=== PATIENT | male | born 1935 | race African-American/Black ===

== ENCOUNTER 2016-06-23 15:26 | Emergency (ER) | payer MEDICARE, MEDICAID ==
[2016-06-23] MEDS ORDERED: TETRACAINE HCL 0.5% OPH SOLN 2 ML OS ONE ×2 (15:31→16:16)
--- NOTE | 2016-06-23 15:33 | ER Document Report ---
ED Medical Screen (RME) - General Stated Complaint: EYE IRRITATION Time seen by provider: 15:32 Mode of Arrival: Ambulatory Information source: Patient Notes: 80-year-old noncontact lens wear male trimming grapevines down and a piece of it flew into his left eye. feels like it is in the upper left corner under the eyelid.
--- NOTE | 2016-06-23 16:18 | ER Document Report ---
HPI - HPI Patient complains to provider of: left eye irritation Onset: Just prior to arrival Onset/Duration: Sudden Quality of pain: Achy Severity: Severe Pain Level: 5 Context: Patient presents to the emergency department with complaints of left eye irritation. He reports he was trimming a grapevine when something hit him in the eye. Reports cataract surgery 6 months ago. Does not wear contacts. Patient reports he doesn't with glasses but he should. He reports he doesn't have very good vision. Associated Symptoms: None Exacerbated by: Denies Relieved by: Denies Similar symptoms previously: No Recently seen / treated by doctor: No - DERM Skin Color: Normal Past Medical History - General Information source: Patient - Social History Smoking Status: Never Smoker Cigarette use (# per day): No Frequency of alcohol use: None Drug Abuse: None Family History: None Patient has suicidal ideation: No Patient has homicidal ideation: No - Medical History Medical History: Negative Renal/ Medical History: Denies: Hx Peritoneal Dialysis Past Surgical History: Reports: Other - CATARACT SURGER Vertical Provider Document - CONSTITUTIONAL Agree With Documented VS: Yes Exam Limitations: No Limitations General Appearance: WD/WN, No Apparent Distress - INFECTION CONTROL TRAVEL OUTSIDE OF THE [place] IN LAST 30 DAYS: No - HEENT HEENT: Atraumatic, Normocephalic, PERRLA. negative: Conjuctival Injection - NECK Neck: Normal Inspection, Supple. negative: Lymphadenopathy-Left, Lymphadenopathy-Right - RESPIRATORY Respiratory: Breath Sounds Normal, No Respiratory Distress O2 Sat by Pulse Oximetry: 95 - CARDIOVASCULAR Cardiovascular: Regular Rate - MUSCULOSKELETAL/EXTREMETIES Musculoskeletal/Extremeties: MAFARHAN FROM - NEURO Level of Consciousness: Awake, Alert, Appropriate - DERM Integumentary: Warm, Dry Course - Re-evaluation Re-evalutation: 06/23/16 16:53 Patient reports left eye irritation still but not as bad as when he first came in here. Patient was instructed on antibiotic drops. He was also instructed to follow up with his general pediatrician on Saturday for recheck. - Vital Signs Vital signs: Temp Pulse Resp BP Pulse Ox 98.5 F 57 L 20 146/64 H 95 06/23/16 15:31 06/23/16 15:31 06/23/16 15:31 06/23/16 15:31 06/23/16 15:31 Procedures - Eye Procedure Left Time completed: 16:30 Eye Irrigated w/ Saline (ccs): 10 Foreign body removal: Left Alcaine Drops Administered: No - TETRACAINE Fluorescein applied: Left Slit lamp used: No Notes: 06/23/16 16:30 Xie lamp used. Patient reports immediate relief from irritation after tetracaine applied. No abrasion noted area swabbed under the eyelid speck of dirt obtained. Patient reports immediate relief and doesn't feel like anything is under his eyelid now. Discharge - Discharge Clinical Impression: left eye irritation, Elevated blood pressure reading Condition: Stable Disposition: HOME, SELF-CARE Instructions: [facility]rop Use ([facility]) Additional Instructions: *You have been evaluated for eye irritation *Monitor your blood pressure. Your blood pressure was elevated today. This may be because you were anxious, in pain or because you need medication. It is important to follow up with your primary care provider for full evaluation. *Use eye drops as prescribed- besivance 1 drop BID for 5 days *Good hand washing *Follow up with an general pediatrician on Saturday *Return to ED for worsening condition, changes, needs, vision changes Forms: Elevated Blood Pressure
[2016-06-23] MEDS ORDERED: BESIFLOXACIN HCL 0.6% OPH SUSP 5 ML BOTTLE OS ONE (16:54)
[2016-06-23 17:44] VITALS: BP 158/85
== END 2016-06-23 17:40 | disposition home or self-care (01) ==
LOC: ER 15:26
DX: H57.12 Ocular pain, left eye (principal); R03.0 Elevated blood-pressure reading, without diagnosis of hypertension
CPT/HCPCS: 99283; A9270